=== PATIENT | female | born 1955 | race Caucasian/White ===

== ENCOUNTER 2019-03-06 13:42 | Outpatient (CLI) | payer OTHER | END 2019-03-06 14:41 | disposition home or self-care (01) | LOC: RAD 13:42 | DX: M12.871 Other specific arthropathies, not elsewhere classified, right ankle and foot (principal); M12.872 Other specific arthropathies, not elsewhere classified, left ankle and foot ==

== ENCOUNTER 2020-09-04 10:58 | Outpatient (CLI) | payer OTHER | END 2020-09-04 11:39 | disposition home or self-care (01) | LOC: MAMO-SONO 10:58 | PROVIDERS: ATTEND Obstetrics & Gynecology | DX: N64.51 Induration of breast (principal); Z12.31 Encounter for screening mammogram for malignant neoplasm of breast ==

== ENCOUNTER 2020-10-30 10:37 | Outpatient (CLI) | payer OTHER | END 2020-10-30 10:38 | disposition home or self-care (01) | LOC: NUCLEAR 10:37 | PROVIDERS: ATTEND Obstetrics & Gynecology | DX: M81.0 Age-related osteoporosis without current pathological fracture (principal) ==

== ENCOUNTER 2020-11-04 08:04 | Outpatient (CLI) | payer OTHER | END 2020-11-04 08:12 | disposition home or self-care (01) | LOC: SONOGRAMA 08:04 → MAMO-SONO 08:30 | PROVIDERS: ATTEND Internal Medicine Cardiovascular Disease | DX: M12.9 Arthropathy, unspecified (principal) ==

== ENCOUNTER 2020-11-12 11:19 | Outpatient (CLI) | payer OTHER | END 2020-11-12 11:28 | disposition home or self-care (01) | LOC: MRI 11:19 | PROVIDERS: ATTEND Internal Medicine Cardiovascular Disease | DX: M19.09 Primary osteoarthritis, other specified site (principal) | CPT/HCPCS: 73721 ==

== ENCOUNTER 2020-11-25 07:20 | Day surgery (SDC) | payer OTHER ==
[2020-11-25] MEDS ORDERED: NABUMETONE500 MG PO (14:42)
[2020-11-25] MEDS ORDERED: PERCOCET 5-3251 EACH PO (14:42)
== END 2020-11-25 17:40 | disposition home or self-care (01) ==
LOC: CIR.AMB 07:20
PROVIDERS: ATTEND Orthopaedic Surgery
DX: S83.212A Bucket-handle tear of medial meniscus, current injury, left knee, initial encounter (principal); M22.42 Chondromalacia patellae, left knee; M67.52 Plica syndrome, left knee; M65.862 Other synovitis and tenosynovitis, left lower leg; Z20.822 Contact with and (suspected) exposure to COVID-19

== ENCOUNTER 2021-02-19 10:03 | Outpatient (CLI) | payer OTHER ==
[~2021-02-19 10:03] MED LIST: NABUMETONE500 MG PO; PERCOCET 5-3251 EACH PO
== END 2021-02-19 10:09 | disposition home or self-care (01) ==
LOC: RAD 10:03
PROVIDERS: ATTEND Physical Medicine & Rehabilitation
DX: M17.0 Bilateral primary osteoarthritis of knee (principal); M25.561 Pain in right knee; M25.562 Pain in left knee

== ENCOUNTER 2021-09-01 15:23 | Outpatient (CLI) | payer OTHER | END 2021-09-01 15:29 | disposition home or self-care (01) | LOC: RAD 15:23 | PROVIDERS: ATTEND Internal Medicine Cardiovascular Disease | DX: J44.9 Chronic obstructive pulmonary disease, unspecified (principal); J11.1 Influenza due to unidentified influenza virus with other respiratory manifestations ==

== ENCOUNTER 2023-04-06 09:45 | Outpatient (CLI) | payer OTHER | END 2023-04-06 09:57 | disposition home or self-care (01) | LOC: MAMO-SONO 09:45 | PROVIDERS: ATTEND Internal Medicine Cardiovascular Disease | DX: Z12.31 Encounter for screening mammogram for malignant neoplasm of breast (principal); N60.12 Diffuse cystic mastopathy of left breast ==

== ENCOUNTER 2023-12-26 15:11 | Outpatient (CLI) | payer OTHER | END 2023-12-26 15:27 | disposition home or self-care (01) | LOC: MRI 15:11 | PROVIDERS: ATTEND Physical Medicine & Rehabilitation | DX: M25.561 Pain in right knee (principal) | CPT/HCPCS: 73721 ==